=== PATIENT | male | born 1995 | race Caucasian/White ===

== ENCOUNTER 2018-09-22 15:39 | Emergency (ER) | payer SELFPAY ==
[~2018-09-22] VITALS: Ht 180.3 cm; Wt 86.2 kg
[2018-09-22 16:43] VITALS: BP 129/79
== END 2018-09-22 17:18 | disposition home or self-care (01) ==
LOC: ER 15:46
DX: S46.912A Strain of unspecified muscle, fascia and tendon at shoulder and upper arm level, left arm, initial encounter (principal); Z91.018 Allergy to other foods; W19.XXXA Unspecified fall, initial encounter; Y93.51 Activity, roller skating (inline) and skateboarding; Y99.8 Other external cause status; Y92.89 Other specified places as the place of occurrence of the external cause
CPT/HCPCS: 73000; 73030